=== PATIENT | male | born 1965 | race Caucasian/White ===

== ENCOUNTER 2020-07-09 11:47 | Outpatient (CLI) | payer MEDICARE, SELFPAY ==
--- NOTE | ~2020-07-09 | XR_ITS ---
XR hip RT min 2V 07/09/2020 12:16 Indication: Right hip pain Procedure: 2 views right hip Comparison: No prior studies for comparison. Findings: There is moderate osteoarthritis of the right hip. No fracture or traumatic malalignment. N o significant soft tissue abnormality. No radiopaque foreign bodies. Impression: 1: Moderate osteoarthritis of the right hip. Reviewed, dictated and finalized at location B. VISION ANNOUNCER Impression: 1: Moderate osteoarthritis of the right hip.
--- NOTE | ~2020-07-09 | XR_ITS ---
EXAMINATION: XR lumbar spine 2-3V DATE: 07/09/2020 12:15 INDICATION: Low back pain TECHNIQUE: Anteroposterior and lateral views of the lumbar spine, and cone-down lateral view of the l umbosacral junction were obtained. COMPARISON: None. FINDINGS: There is no fracture. There are 2 mm of anterolisthesis of L4 on L5. There is mild loss of intervertebral disc space height throughout the lumbar spine. The vertebral body heights are maintain ed. Mild to moderate facet osteoarthritis is present in the lower lumbar spine. Small degenerative os teophytes project from the anterior endplates of multiple vertebral bodies. The bowel gas pattern is normal. IMPRESSION: 1. Mild lumbar spondylosis without acute findings. Reviewed, dictated and finalized at location A. T PRODUCTION MANAGER
== END 2020-07-09 11:48 | disposition home or self-care (01) ==
PROVIDERS: PCP Family Medicine
DX: M16.11 Unilateral primary osteoarthritis, right hip (principal)
CPT/HCPCS: 72100; 73502

== ENCOUNTER 2020-11-26 14:02 | Outpatient (CLI) | payer MEDICARE, SELFPAY ==
--- NOTE | ~2020-11-26 | MR_ITS ---
EXAMINATION: MR lumbar spine wo [facility] EXAM DATE: 11/26/2020 15:30 INDICATION: Low back pain, symptoms 5 years. TECHNIQUE: Multi-sequential, multiplanar MR images of the lumbar spine were obtained without contrast . Sagittal T1, T2, T2 fat saturation images. Axial T2 weighted images. There is no prior study for comparison. FINDINGS: The vertebral bodies are aligned in the AP dimension. Vertebral body and disc heights are w ell-maintained. There are no suspicious marrow signal abnormalities. The conus medullaris terminates at the L1/2 level and has normal signal intensity and morphology. There are no suspicious marrow sig nal abnormalities. Paraspinal soft tissue is unremarkable. Level by level evaluation: T12-L1: Disc does not extend beyond the endplate margin. Facet arthropathy: Mild. Neural foraminal stenosis: No stenosis. Central canal stenosis: No stenosis. L1-L2: Disc does not extend beyond the endplate margin. Facet arthropathy: Mild. Neural foraminal stenosis: No stenosis. Central canal stenosis: No stenosis. L2-L3: Disc does not extend beyond the endplate margin. Facet arthropathy: Mild. Neural foraminal stenosis: No stenosis. Central canal stenosis: No stenosis. L3-L4: Disc does not extend beyond the endplate margin. Facet arthropathy: Mild to moderate. Neural foraminal stenosis: No stenosis. Central canal stenosis: No stenosis. L4-L5: There is a minimal diffuse disc bulge. Facet arthropathy: Moderate. Neural foraminal stenosis: Mild right. Central canal stenosis: Mild. L5-S1: There is a mild diffuse disc bulge. Facet arthropathy: Moderate right, mild left. Neural foraminal stenosis: Mild to moderate bilateral. Central canal stenosis: No stenosis. IMPRESSION: 1. Mild lumbar spondylosis. Reviewed, dictated and finalized at location A. IMPRESSION: 1. Mild lumbar spondylosis.
== END 2020-11-26 14:03 ==
LOC: MICIMG 14:02
PROVIDERS: Visit Provider Nurse Practitioner Family
DX: M47.896 Other spondylosis, lumbar region (principal)
CPT/HCPCS: 72148

== ENCOUNTER 2021-09-05 09:19 | Outpatient (CLI) | payer MEDICARE, SELFPAY ==
--- NOTE | ~2021-09-05 | CT_ITS ---
EXAMINATION: CT abdomen wo con DATE: 09/05/2021 09:33 INDICATION: Nontraumatic diastases of the rectus abdominis muscle TECHNIQUE: Computed tomography (CT) of the abdomen was performed without intravenous contrast. Automa soy exposure control and iterative reconstruction technique were employed. The dose-length product wa s 701.78 mGy-cm. COMPARISON: None FINDINGS: Lung bases are clear. Heart size is normal. No pericardial or pleural effusion. Liver, gallbladder, s pleen, pancreas, bilateral adrenal glands and kidneys are normal. Visualized portions of the bowels a re normal with no wall thickening or obstruction. Mild diastases of the rectus abdominis muscle with maximal separation of the medial margins of the rectus abdominis muscles measuring 3 cm . Tiny fat-co ntaining umbilical hernia. There is a separate slightly larger fat-containing paraumbilical hernia al wilbert its cephalad margin which measures 2.4 x 1.8 x 1.7 cm with 5 mm diameter orifice. No pathological ly enlarged abdominal lymphadenopathy. Mild thoracolumbar dextrocurvature with mild lumbar and lower thoracic spondylosis. IMPRESSION: 1. Mild rectus diastases with tiny fat-containing umbilical hernia and small fat-containing paraumbil ical hernia. Reviewed, dictated and finalized at location B. IMPRESSION: 1. Mild rectus diastases with tiny fat-containing umbilical hernia and small fa t-containing paraumbilical hernia.
== END 2021-09-05 09:20 ==
LOC: MICIMG 09:19
PROVIDERS: PCP Family Medicine; Visit Provider Surgery
DX: M62.08 Separation of muscle (nontraumatic), other site (principal); K42.9 Umbilical hernia without obstruction or gangrene; M47.815 Spondylosis without myelopathy or radiculopathy, thoracolumbar region
CPT/HCPCS: 74150

== ENCOUNTER 2022-01-20 11:40 | Outpatient (CLI) | payer MEDICARE, SELFPAY ==
--- NOTE | ~2022-01-20 | XR_ITS ---
6 EXAMINATION: XR chest 2V Exam Date/Time: 01/20/2022 11:45 CDT HISTORY: R06.2 - Wheezing Comparison: 08/06/2012. RESULT: Lines, tubes, and devices: None. Lungs and pleura: Slightly low volumes with crowding, particularly in the lateral view. Cardiomediastinal silhouette: Stable. Other: No acute osseous or upper abdominal finding. IMPRESSION: No acute cardiopulmonary process. Reviewed, dictated and finalized at location K.
--- NOTE | ~2022-01-20 | XR_ITS ---
EXAMINATION: XR hand RT 2V, XR wrist RT 2V DATE: 01/20/2022 12:03 INDICATION: Right hand and wrist pain. TECHNIQUE: 1. Posteroanterior and lateral views of the right wrist were obtained. 2. Dorsal palmar and lateral views of the right hand were obtained. COMPARISON: None. FINDINGS: Alignment of the right hand and wrist is normal. No fracture identified. Polyarticular osteoarthriti s, moderate severity at the distal interphalangeal joints and mild at the distal radioulnar, wrist, t riscaphe, first carpometacarpal and remaining metacarpophalangeal and interphalangeal joints. No eros ions to suggest inflammatory arthritis. Soft tissues are unremarkable. IMPRESSION: 1. Mild to moderate polyarticular osteoarthritis at the right hand and wrist, greatest at the distal interphalangeal joints. Reviewed, dictated and finalized at location A. IMPRESSION: 1. Mild to moderate polyarticular osteoarthritis at the right hand and wrist, g reatest at the distal interphalangeal joints.
== END 2022-01-20 11:41 ==
LOC: MICIMG 11:43
PROVIDERS: PCP Family Medicine; Visit Provider Physician Assistant Medical
DX: M79.641 Pain in right hand (principal); M25.531 Pain in right wrist; R06.2 Wheezing; M19.041 Primary osteoarthritis, right hand
CPT/HCPCS: 71046; 73100; 73120

== ENCOUNTER 2022-02-04 08:56 | Outpatient (CLI) | payer MEDICARE, SELFPAY ==
[2022-02-04 09:39] LABS: Potassium 3.4 mmol/L (3.4-5.0); Sodium 137 mmol/L (137-145)
[2022-02-04 09:40] LABS: Anion Gap 9 mmol/L (8-16); Blood Urea Nitrogen 15 mg/dL (7-17); Calcium 8.9 mg/dL (8.4-10.2); Carbon Dioxide 27 mmol/L (22-30); Chloride 101 mmol/L (98-107); Estimated Glomerular Filt Rate 52; Glucose 85 mg/dL (65-110)
== END 2022-02-04 08:57 | disposition home or self-care (01) ==
PROVIDERS: Anesthesiology; PCP Family Medicine; Visit Provider Surgery
DX: Z01.812 Encounter for preprocedural laboratory examination (principal); T50.2X5A Adverse effect of carbonic-anhydrase inhibitors, benzothiadiazides and other diuretics, initial encounter; K46.9 Unspecified abdominal hernia without obstruction or gangrene
CPT/HCPCS: 36415; 80048; 86850; 86900; 86901

== ENCOUNTER 2022-02-05 00:53 | Day surgery (SDC) | payer MEDICARE, SELFPAY ==
[2022-02-03 10:08] VITALS: BMI 35.5
--- NOTE | 2022-02-03 10:29 | SUR.PREOP ---
Report to the Outpatient Waiting Room, entrance under the green pavilion located off [facility], at time 1000 on date 02/05/22. OR Time: 1200. - You and your visitor will be asked to self-screen and do not enter if you have any COVID symptoms. - Only one visitor and NO children visitors are allowed at this time. - The patient visitor is requested to leave or wait in car when not with patient due to restrictions. - A mask is required within the hospital. Patients may have clear liquids (water, carbonated beverages, clear teas, apple juice) until 3 hours prior to surgery with a maximum of 20 ounces. - No food from midnight until time of surgery - Infants may have breast milk until 4 hours before surgery, formula 6 hours prior to surgery. - Children will be allowed to drink immediately following surgery. If applicable, please bring a bottle or sippy cup to assist with drinking. Juice, water, soda, and popsicles are readily available. For infants on formula, please bring formula the day of surgery. Pacifiers are allowed. Take the following medications with a SIP of water the morning of surgery: __ESCITALOPRAM, LEVOTHYROXINE Medications to discontinue per physician _HOLD ALL OTHER MORNING MEDICATIONS ON THE DAY OF SURGERY Date to take last dose Please no make-up, nail kuwaiti, hairspray, perfume, deodorant, or body powder the day of surgery. No jewelry (including any body piercings) or valuables the day of surgery, leave them at home. Please take a shower or bath the night before, or the morning of, surgery with an antibacterial soap. Wear comfortable, loose fitting clothing. Children are encouraged to wear pajamas. USE HIBICLENS THE MORNING OF SURGERY. USE DIRECTED - Jewelry must be removed prior to entering the operating room. Rings and piercings that are not removed may be cut off. - The hospital will not accept responsibility for valuables. - Please leave all valuables, including medications, at home the day of surgery. If you are going home after surgery, a licensed food service driver must drive you home. - NO public transportation without another adult. - We recommend that an adult stay with you for 24 hours following discharge. - We also recommend that you do not drive, make important decision, drink alcoholic beverages, or take any drugs that were not prescribed by your health care provider for at least 24 hours after your discharge time. For Pediatric surgeries, we recommend two adults accompany the child home (only one inside the building at this time). Follow any additional instructions given to you from your surgeon. If you or anyone in your household have experienced Covid symptoms in the past week, please notify your surgeon or the nurse liaison at the phone number below for possible testing. Telephone instructions given to PATIENT and asked if any additional questions and then verbalized understanding. Patient advised to call surgeon office or pre surgery nurse liaison [phone] if any additional questions.
[2022-02-05] VITALS (13 sets, daily range): BP systolic 110–138; BP diastolic 70–83; PULSE 68–98; RESP 14–22; TEMP 36.5–36.9; O2SAT 88–100
--- NOTE | 2022-02-05 06:46 | WPDANESEPPF ---
Anes - Initial Pre Proc Eval Procedure: Operation Date: 02/05/22 07:30 Proposed Procedures p Robotic Assisted Ventral Hernia Repair with Mesh - Inez Silva MD Date/Time: 02/05/22 06:46 Surgeon: Inez Silva MD Pre Op Diagnosis: ventral hernia Patient Data Age: 56 Gender: F Height: 1.68 m Weight: 99.79 kg Allergies Allergy/AdvReac Type Severity Reaction Status Date / Time erythromycin base Allergy Unknown Unknown Verified 01/21/22 08:58 iodine Allergy Other Verified 02/03/22 10:07 levofloxacin [From Levaquin] AdvReac Mild Nausea Verified 01/21/22 08:58 Home Medications Medication Instructions Recorded Confirmed Type Lactobacillus combo no.23 14 1 cell PO DAILY 11/04/20 02/03/22 History billion cell capsule (David Probiotic) fluticasone propionate 50 1 spray intranasal DAILY 11/04/20 02/03/22 History mcg/actuation nasal spray,suspension (Flonase Allergy Relief) celecoxib 200 mg capsule 200 mg PO BID #180 caps 06/22/21 02/03/22 Rx escitalopram oxalate 10 mg tablet 10 mg PO DAILY #90 tabs 06/22/21 02/03/22 Rx indapamide 2.5 mg tablet 2.5 mg PO DAILY #90 tabs 06/22/21 02/03/22 Rx syringe with needle 3 mL 21 gauge #100 ea 06/22/21 02/03/22 Rx x 1 1/2 (BD Luer-Cathleen Syringe) testosterone cypionate 200 mg/mL 200 mg IM .every 2 weeks #10 mL 06/22/21 02/03/22 Rx intramuscular oil (Depo-Testosterone) valacyclovir 500 mg tablet 500 mg PO DAILY #90 tabs 06/22/21 02/03/22 Rx cetirizine 10 mg capsule (Zyrtec) 10 mg PO DAILY PRN Allergy Symptoms 08/20/21 02/03/22 History levothyroxine 125 mcg tablet 125 mcg PO DAILY 02/03/22 02/03/22 History Patient hx anesthesia problems: post op nausea/vomiting Family hx anesthesia problems: none Results Review: All pre-operative results and documents have been reviewed as part of the pre-operative evaluation. 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 Hypothyroidism Lumbar back pain with radiculopathy affecting lower extremity Lumbar pain Ongoing treatment with hormonal therapy Right hip pain Skin lesion of right arm Trochanteric bursitis, right hip Ventral hernia Vision changes Wears glasses Surgical History Surgical History Deficient knowledge of hysterectomy hx of hysterectomy 2011 History of bilateral breast reduction surgery 2003 History of cataract surgery 2000 History of thyroid surgery (HALF) 1996 History of tonsillectomy 1980 S/P ACL reconstruction 2012 Family History Family History Father Hypertension Family history of exposure to Agent [place] Grandparent Hypertension Mother Emphysema lung Depression Sibling No problems noted. Other Arthritis Breast cancer Cancer Family history of lung cancer Heart disease Kidney disorder Lung cancer Lung disease Retinitis pigmentosa Skin cancer Social History Social History Smoking packs per day: 5 Smoking cigarettes per day: 100.0 Years smoked: 30 Smoking pack-years: 150.00 Smoking status: Former smoker Tobacco type: cigarettes and e-cigarettes/vaping Second hand tobacco smoke exposure: Yes Additional smoking assessment comments: QUIT 5 YRS AGO Alcohol intake: current Drinks per week: 3 Substance use: never Substance use type: does not use Living arrangements: with family Additional occupation/education comments: [employer] Gender identity (if verbalized by the patient): Transgender Male Sexual Orientation (if Verbalized by the Patient): Straight or Heterosexual Anes - Eval Final PreProcedure Day of Procedure 02/05
[2022-02-05] MEDS: ACETAMINOPHEN 500 MG TABLET 1000 MG PO (06:56)
[2022-02-05] MEDS: KETOROLAC 15 MG/ML VIAL (*BKC) IV PUSH (07:08)
--- NOTE | 2022-02-05 07:17 | WPDHPUPDATE1 ---
History and Physical Update Update Date/Time: 02/05/22 07:17 History and Physical has been reviewed, including an updated exam of the patient. There are NO changes in the patient's condition. Risks, benefits, and alternatives have been discussed and questions answered. Patient agrees to proceed with procedure.
[2022-02-05] MEDS: SCOPOLAMINE 1.5 MG PATCH TRANSDERM (07:18)
[2022-02-05] MEDS: LACTATED RINGERS 1,000 ML 30 ML IV CONT ×2 (07:18→09:12)
[2022-02-05] MEDS: ceFAZolin 2 GM/D5W 50 ML 2 GM/50 ML BAG IVPB (07:28)
[2022-02-05] MEDS: BUPIVACAINE/EPINEPHRINE 0.25% 50 ML VIAL 30 ML INFILTRATE (08:15)
--- NOTE | 2022-02-05 09:04 | W.PM.PROC2 ---
Procedure Note - Detailed Date of Procedure 02/05/22 Pre-op Diagnosis ventral hernia, umbilical hernia Post-op Diagnosis Same Procedure Performed robotic assisted incarcerated supraumbilical ventral hernia and umbilical hernia with mesh Surgeon Inez Silva MD Anesthesia General Indications 56 y/o M c incarcerated supraumbilical ventral hernia and umbilical hernia Findings moderate sized incarcerated supraumbilical hernia, small umbilical hernia Description of Procedure The patient was taken the operating room placed in the supine position. After adequate induction of general anesthesia, the patient was prepped and draped in normal sterile fashion. A time-out was then done to verify the patient's identity as well as the procedure being performed. I began by making a 5 mm incision in the left upper quadrant. Through this, a Veress needle was placed into the peritoneal cavity and CO2 gas was insufflated. After adequate pneumoperitoneum was achieved, a 5 mm trocar was placed through this incision. I then placed the laparoscope through this trocar site and under direct visualization I placed a 8 mm port in the left mid abdomen as well as an additional 8 mm port in the left lower abdomen. I then moved the camera to the lower port and replaced the 5 mm port with a 12 mm airport. The robot was then docked to the 3 port sites. I then went to the robotic console. I began by identifying the hernias. A moderate-sized incarcerated hernia was noted in the supraumbilical region. Using graspers, I was able to reduce this hernia. The hernia was noted to contain a large amount of preperitoneal fat and omentum. Once reduced, I also reduced and dissected out the hernia sac. A smaller umbilical hernia was also noted. The contents were again reduced and I again also dissected out the hernia sac. I then closed the approximately 4 cm combined defects with 0 strata fix suture. I then placed a 15 x 10 cm Ventralight mesh into the abdominal cavity. The Vicryl stitch was placed in the middle of the mesh and brought up centering the mesh over the defect. Once this was done, I used 2 0 V lock suture x 2 to circumferentially suture the mesh to the abdominal. Once the mesh was completely sutured in, I was happy with our tension-free repair. The mesh was noted to have good overlap of the defect. I then removed the centering device. All sutures were removed. At this point, the robot was undocked and all ports were removed. I then closed the 12 mm port site with an 0 Vicryl [id number] suture at the fascial level. All port sites were then closed with 4 O Monocryl subcuticular suture. The patient tolerated the procedure well, was extubated in the operating room postoperative, and transferred to the recovery room in stable condition. Implants 15x10 cm Ventralight mesh Estimated Blood Loss 10 Drains No Packing No Pathology None sent Complications No immediate complications Condition Stable Disposition PACU [facility] Billing Surgery - Charge Forward: Surgery Billing
[2022-02-05] MEDS: fentaNYL CITRATE INJ (*CRX) 100 MCG/2 ML VIAL 25 MCG IV PUSH ×6 (09:37→11:51)
[2022-02-05] MEDS: oxyCODONE HCL (*CRX) 5 MG TAB IR PO (10:54)
== END 2022-02-05 13:10 | disposition home or self-care (01) ==
PROVIDERS: PCP Family Medicine; Visit Provider Surgery
PROC: (CPT 49653; principal; 2022-02-05 07:30)
DX: K43.6 Other and unspecified ventral hernia with obstruction, without gangrene (principal); K42.0 Umbilical hernia with obstruction, without gangrene; E89.0 Postprocedural hypothyroidism; Z79.890 Hormone replacement therapy; Z87.891 Personal history of nicotine dependence; E66.9 Obesity, unspecified; Z68.35 Body mass index [BMI] 35.0-35.9, adult
CPT/HCPCS: 49653; S2900; 36415; 80048; 86850; 86900; 86901; A9270; C1781; J0690; J1100; J1170; J1885; J2250; J2405; J2704; J2710; J3010; J7030; J7120

== ENCOUNTER 2023-02-04 13:26 | Outpatient (CLI) | payer MEDICARE, SELFPAY ==
--- NOTE | ~2023-02-04 | XR_ITS ---
EXAMINATION: XR shoulder RT min 2V DATE: 02/04/2023 14:58 INDICATION: Right shoulder pain. TECHNIQUE: 4 views of right shoulder were obtained. COMPARISON: None. FINDINGS: Bone alignment is normal. No fracture. There is mild osteoarthritis of glenohumeral joint a nd acromioclavicular joint. IMPRESSION: 1. Mild polyarticular osteoarthritis. Reviewed, dictated and finalized at location E.
== END 2023-02-04 13:27 ==
PROVIDERS: PCP Family Medicine; Visit Provider Nurse Practitioner Family
DX: M19.011 Primary osteoarthritis, right shoulder (principal)
CPT/HCPCS: 73030

== ENCOUNTER 2023-04-06 12:31 | Outpatient (CLI) | payer MEDICARE, SELFPAY ==
--- NOTE | ~2023-04-06 | MR_ITS ---
MRI of the brain Clinical History: Resting tremor Technique: Axial and sagittal T1-weighted images were acquired. These were followed by axial T2-weigh soy, diffusion weighted, gradient, and FLAIR images. Findings: There is no acute infarct, internal hemorrhage, or mass lesion. There are minimal chronic w luis matter changes in the periventricular white matter. Ventricles and subarachnoid spaces are unremarkable. Orbits are unremarkable. Paranasal sinuses and m astoid air cells are clear. Major intracranial flow voids are intact. Suggestion of empty sella syndrome. Sagittal midline structures are otherwise intact. IMPRESSION: No intracranial hemorrhage, mass lesion, or acute infarct. Minimal chronic microvascular ischemic changes. Suggestion of empty sella syndrome. Reviewed, dictated and finalized at location M. [place] CLIENT MANAGER
== END 2023-04-06 12:32 ==
PROVIDERS: PCP Family Medicine; Visit Provider Student in an Organized Health Care Education/Training Program
DX: I67.82 Cerebral ischemia (principal); G25.2 Other specified forms of tremor
CPT/HCPCS: 70551

== ENCOUNTER 2023-05-03 12:39 | Outpatient (CLI) | payer MEDICARE, SELFPAY ==
--- NOTE | ~2023-05-03 | MR_ITS ---
EXAMINATION: MR shoulder RT wo con DATE: 05/03/2023 13:30 INDICATION: Right shoulder pain TECHNIQUE: Magnetic resonance imaging (MRI) of the right shoulder was performed without intravenous c ontrast. Sequences included axial PD-weighted FS FSE, coronal oblique PD-weighted FS FSE, coronal obl ique T2-weighted FS FSE, sagittal PD-weighted FS FSE, and sagittal T1-weighted SE. COMPARISON: None. FINDINGS: Coracoacromial arch: The acromion undersurface is minimally curved in morphology (type I-II). The coracoacromial ligament is normal. Mild acromioclavicular osteoarthritis. Rotator cuff: Mild supraspinatus and infraspinatus tendinopathy. There is an intra-articular tear extending for melissa roximately 2 cm AP along the superior facet and anterior most portion of the middle facet insertion o f the supraspinatus and conjoined portion of the supraspinatus and infraspinatus tendons. The tear in volves up to one third of the tendon thickness. There is up to 1 cm maximal medial retraction of the torn central portion of the supraspinatus tendon. The subscapularis and teres minor tendons are juan ramon l. Normal rotator cuff muscle bulk and signal. Biceps tendon, glenoid labrum and glenohumeral cartilage: Long head of the biceps tendon is normal. Glenoid labrum is normal. Glenohumeral cartilage is normal. Fluid: There is a small amount of fluid in the long head biceps tendon sheath which is disproportionate to t he physiologic amount of fluid in the glenohumeral joint space consistent with mild bicipital tenosyn ovitis. No loose osteochondral bodies. Small amount of fluid in the subacromial/subdeltoid bursa cons istent with mild bursitis. Bones: Normal marrow signal with no edema, fracture or abnormal marrow replacing process. IMPRESSION: 1. Mild supraspinatus and infraspinatus tendinopathy with mild intrasubstance tear extending 2 cm AP along the footplate of the supraspinatus and conjoined supraspinatus and infraspinatus tendons. 2. Mild bicipital tenosynovitis and mild subacromial/subdeltoid bursitis. Reviewed, dictated and finalized at location A. CULTURAL PURCHASING AGENT IMPRESSION: 1. Mild supraspinatus and infraspinatus tendinopathy with mild intrasubstance t ear extending 2 cm AP along the footplate of the supraspinatus and conjoined bliss praspinatus and infraspinatus tendons. 2. Mild bicipital tenosynovitis and mild subacromial/subdeltoid bursitis.
== END 2023-05-03 12:40 ==
PROVIDERS: PCP Family Medicine; Visit Provider Orthopaedic Surgery
DX: M75.21 Bicipital tendinitis, right shoulder (principal); M75.101 Unspecified rotator cuff tear or rupture of right shoulder, not specified as traumatic
CPT/HCPCS: 73221

== ENCOUNTER 2023-08-23 00:31 | Day surgery (SDC) | payer MEDICARE, SELFPAY ==
[2023-08-16 14:47] VITALS: BMI 35.6
--- NOTE | 2023-08-16 14:54 | PC.NURSE ---
Report to the Outpatient Waiting Room, entrance under the green pavilion located off [facility], at time _1000_ on date _08-23-23_. Planned Procedure Time: _1200_. Time changes happen often and if your time is changed the preop area will call you the afternoon before. - You and your visitor will be asked to self-screen and do not enter if you have any COVID symptoms. - A mask is optional within the hospital at this time. Patients may have clear liquids (water, carbonated beverages, clear teas, apple juice) until 3 hours prior to surgery with a maximum of 20 ounces. - No food from midnight until time of surgery Take the following medications with a SIP of water the morning of surgery: __Levothyroxine, Escitalopram and Flonase DO NOT STOP ANY OF YOUR OTHER PRESCRIPTION MEDICATIONS PRIOR TO SURGERY ?EXCEPT THE FOLLOWING Medications to discontinue per physician ____None Date to take last dose Please no make-up, nail telugu, hairspray, perfume, deodorant, or body powder the day of surgery. No jewelry (including any body piercings) or valuables the day of surgery, leave them at home. Please take a shower or bath the night before, or the morning of, surgery with an antibacterial soap. Wear comfortable, loose fitting clothing. - Jewelry must be removed prior to entering the operating room. Rings and piercings that are not removed may be cut off. - The hospital will not accept responsibility for valuables. - Please leave all valuables, including medications, at home the day of surgery. If you are going home after surgery, a licensed sheet pile driver operator must drive you home. - NO public transportation without another adult if you receive anesthesia. - We recommend that an adult stay with you for 24 hours following discharge. - We also recommend that you do not drive, make important decision, drink alcoholic beverages, or take any drugs that were not prescribed by your health care provider for at least 24 hours after your discharge time. Follow any additional instructions given to you from your surgeon. If you or anyone in your household have experienced Covid symptoms in the past week, please notify your surgeon or the nurse liaison at the phone number below for possible testing. Telephone instructions given to _Mateoandrew__and asked if any additional questions and then verbalized understanding. Patient advised to call surgeon office or pre surgery nurse liaison [phone] if any additional questions.
[2023-08-23] VITALS (20 sets, daily range): BP systolic 98–151; BP diastolic 58–92; PULSE 77–109; RESP 14–24; TEMP 36.3–36.9; O2SAT 86–100
--- NOTE | ~2023-08-23 | XR_ITS ---
XR chest 1V portable 08/24/2023 09:38 Indication: Dyspnea. Increasing oxygen requirement. Procedure: AP portable chest Comparison: Comparison to multiple prior studies sequentially, with oldest reviewed study dated 01/2013. Findings: Developing patchy bilateral airspace disease. Heart size normal. No pleural effusion or pne umothorax. No acute osseous abnormality. Impression: 1: Developing patchy bilateral airspace disease which may represent pneumonia or edema. Reviewed, dictated and finalized at location L. Impression: 1: Developing patchy bilateral airspace disease which may represent pneumonia o r edema.
[2023-08-23] MEDS: LACTATED RINGERS 1,000 ML 30 ML IV CONT ×2 (10:47→14:18)
[2023-08-23] MEDS: ACETAMINOPHEN 500 MG TABLET 1000 MG PO ×3 (10:50→23:46)
[2023-08-23] MEDS: MAG HYDROX/AL HYDROX/SIMETH 30 ML UDC PO (11:18)
[2023-08-23] MEDS: KETOROLAC 15 MG/ML VIAL (*BKC) IV PUSH (11:25)
--- NOTE | 2023-08-23 11:54 | WPDHPUPDATE1 ---
History and Physical Update Update Date/Time: 08/23/23 11:54 History and Physical has been reviewed, including an updated exam of the patient. There are NO changes in the patient's condition. Risks, benefits, and alternatives have been discussed and questions answered. Patient agrees to proceed with procedure.
--- NOTE | 2023-08-23 12:08 | WPDANESEPPF ---
Anes - Initial Pre Proc Eval Procedure: Operation Date: 08/23/23 12:00 Proposed Procedures p Right Arthroscopic Rotator Cuff Repair with Subacromial Decompression, Possible Biceps Tenodesis, Proceed as Indicated - Sav George MD Date/Time: 08/23/23 12:08 Surgeon: Sav George MD Pre Op Diagnosis: Right partial rotator cuff tear Patient Data Age: 58 Gender: M Height: 1.68 m Weight: 102.3 kg Last Vital Signs Temp 36.6 C 08/23/23 11:07 Pulse 85 08/23/23 11:07 Resp 16 08/23/23 11:07 BP 139/83 08/23/23 11:07 Pulse Ox 100 08/23/23 11:07 O2 Del Method Room Air 08/23/23 11:07 Allergies Allergy/AdvReac Type Severity Reaction Status Date / Time erythromycin base Allergy Unknown Gastrointestinal Verified 08/23/23 10:25 Upset iodine Allergy Other Verified 08/23/23 10:25 ropinirole AdvReac Intermediate Gastrointestinal Verified 08/23/23 10:25 Upset levofloxacin [From Levaquin] AdvReac Mild Nausea Verified 08/23/23 10:25 Home Medications Medication Instructions Recorded Confirmed Type Lactobacillus combo no.23 14 1 cell PO DAILY 11/04/20 08/23/23 History billion cell capsule (David Probiotic) fluticasone propionate 50 1 spray intranasal DAILY 11/04/20 08/23/23 History mcg/actuation nasal spray,suspension (Flonase Allergy Relief) cetirizine 10 mg capsule (Zyrtec) 10 mg PO DAILY PRN Allergy Symptoms 08/20/21 08/23/23 History escitalopram oxalate 10 mg tablet 10 mg PO DAILY #90 tabs 04/14/23 08/23/23 Rx indapamide 2.5 mg tablet 2.5 mg PO DAILY #90 tabs 04/14/23 08/23/23 Rx valacyclovir 500 mg tablet 500 mg PO DAILY #90 tabs 04/14/23 08/23/23 Rx levothyroxine 125 mcg tablet 125 mcg PO DAILY #90 tabs 06/27/23 08/23/23 Rx syringe with needle 3 mL 21 gauge #13 ea 06/27/23 08/16/23 Rx x 1 1/2 (BD Luer-Cathleen Syringe) testosterone cypionate 200 mg/mL 200 mg IM .every 2 weeks #10 mL 08/02/23 08/23/23 Rx intramuscular oil (Depo-Testosterone) Patient hx anesthesia problems: none Family hx anesthesia problems: none Results Review: All pre-operative results and documents have been reviewed as part of the pre-operative evaluation. [facility] Past Medical History Medical History Anxiety Arthritis Blindness BMI 34.0-34.9,adult BMI 35.0-35.9,adult BMI 36.0-36.9,adult Claustrophobia Folliculitis Hernia, umbilical Hormonal imbalance in transgender patient Hypothyroidism Lumbar back pain with radiculopathy affecting lower extremity Lumbar pain Ongoing treatment with hormonal therapy Right hip pain Skin lesion of right arm Supraumbilical hernia Trochanteric bursitis, right hip Ventral hernia Vision changes Wears glasses Surgical History Surgical History Deficient knowledge of hysterectomy hx of hysterectomy 2011 H/O umbilical hernia repair robotic assisted incarcerated supraumbilical ventral hernia & umbilical hernia with mesh 02/05/22 History of bilateral breast reduction surgery 2004 History of cataract surgery 2001 History of thyroid surgery (HALF) 1996 History of tonsillectomy 1980 S/P ACL reconstruction 2012 Family History Family History Father Hypertension Family history of exposure to Agent [place] Grandparent Hypertension Mother Emphysema lung Depression Sibling No problems noted. Other Arthritis Breast cancer Cancer Family history of lung cancer Heart disease Kidney disorder Lung cancer Lung disease Retinitis pigmentosa Skin cancer Social History Social History Smoking packs per day: 0.5 Smoking cigarettes per day: 10.0 Years smoked: 20 Smoking pack-years: 10.00 Smoking status: Former smoker Tobacco type: cigarettes and e-cigaret
[2023-08-23] MEDS: SCOPOLAMINE 1 MG PATCH 1 PATCH TRANSDERM (12:09)
[2023-08-23] MEDS: ceFAZolin 2 GM/D5W 50 ML 2 GM/50 ML BAG IVPB (12:51)
[2023-08-23] MEDS: EPINEPHrine HCL INJ 1 MG/ML AMPUL IRRIGATION (12:53)
[2023-08-23] MEDS: BUPIVACAINE/EPINEPHRINE 0.5% 30 ML VIAL INFILTRATE (12:58)
--- NOTE | 2023-08-23 14:33 | W.PM.PROC2 ---
Procedure Note - Detailed Date of Procedure 08/23/23 Pre-op Diagnosis Right partial rotator cuff tear Post-op Diagnosis Other (1. Partial rotator cuff tear 2. Subacromial impingement) Procedure Performed Right shoulder 1. Arthroscopic rotator cuff repair 2. Arthroscopic subacromial decompression Surgeon Sav George MD [employer] Shiloh Willson PA-C Anesthesia General and Regional ( interscalene block) Findings Findings consistent with the MRI: partial-thickness supraspinatus tear. 15% on the articular side and an intra-articular split noted on the MRI. The bursal side was in good shape with only minimal fraying. There was a prominence to the lateral greater tuberosity footprint area that was clearly impinging on the large subacromial spur. Acromioplasty was performed. The Regeneten graft was placed over the supraspinatus tendon. Interestingly, the biceps appeared healthy but was slightly tethered to the capsule, and was enveloped in the capsule on the anterior aspect. Description of Procedure Preoperative antibiotics were given. An interscalene block was administered in the preoperative area. The patient was bought brought to the operating room. A general anesthetic was administered. The patient was carefully positioned in the [beach chair] position. The head and neck were carefully positioned. The non operative extremity was also carefully positioned. The shoulder was prepped and draped in the usual sterile fashion. Examination was performed. Standard posterior and anterior arthroscopic portals were established. Inflow achieved with the arthroscopic pump using saline and epinephrine. The glenohumeral joint was carefully inspected. The glenohumeral articular cartilage was healthy. No tearing of the subscapularis or infraspinatus. Biceps anchor was firmly attached. Mild posterior labral fraying. Interestingly the biceps was confluent with the capsule. This did not have any appearance of prior injury or pathology. Attention was turned to the subacromial space. A complete bursectomy was performed. An acromioplasty was performed. The bursal bursal sided rotator cuff had minimal fraying at the area of impingement. The tendon itself was slightly soft at the area of intra substance tearing but was otherwise intact. The medium-size Regeneten graft was brought into the shoulder through a lateral portal. Care was taken to avoid the biceps tendon which was previously marked with a spinal needle. Six tendon anchors were applied and 2 bone anchors. The collagen implant was nicely approximated. The arthroscopic instruments were removed. The wounds were closed with 3-0 Monocryl subcuticular suture and steri strips. There were no complications. A sling was applied and the patient brought to the recovery room. Physician assistant auto center manager, Shiloh Willson PA-C, required for surgery; including patient positioning, draping, arthroscopic camera operation, maintaining position of the collagen graft, wound closure, and dressing and sling placement. Implants The Regeneten collagen tissue implant from [employer]. Medium-sized implant. Five KENROY soft tissue anchors. Two peek bone anchors. Estimated Blood Loss 10 Pathology None sent Complications No immediate complications Condition Stable Disposition PACU [facility] Billing Surgery - Charge Forward: Surgery Billing
--- NOTE | 2023-08-23 17:21 | SUR.PHASEII ---
Patient off of oxygen for 30 minutes. Patient oxygen saturation dropped to 87% twice in that timeframe and was able to recover to 90% or greater without needing placed back on oxygen. Patient ambulated in morrison of outpatient recovery. Oxygen saturation dropped to 81% upon return to patient's room. Patient was never able to recover to a saturation above 90% without supplemental oxygen. Shiloh LINARES notified of this. Plan to admit patient to med/surg for evaluation over night.
[2023-08-23] MEDS: SENNA/DOCUSATE SODIUM TABLET 2 TAB PO (18:25)
[2023-08-23] MEDS: SODIUM CHLORIDE 0.9% IV 1,000 ML 125 ML IV CONT (18:26)
--- NOTE | 2023-08-23 18:37 | PC.NURSE ---
This patient, Tanvir Walker, was received from Recovery Room 2 on 08/23/23 at 1838. Patient/family oriented to unit policies and routines. Questions about floor answered.
[2023-08-23] MEDS: FAMOTIDINE 20 MG TABLET PO (20:54)
--- NOTE | 2023-08-23 22:21 | WPDCN ---
Assessment and Plan Assessment and plan (1) Partial tear of right rotator cuff: Qualifiers: Rotator cuff tear trauma status: traumatic Encounter type: initial encounter Qualified Code(s): S46.011A - Strain of muscle(s) and tendon(s) of the rotator cuff of right shoulder, initial encounter Code(s): M75.111 - Incomplete rotator cuff tear or rupture of right shoulder, not specified as traumatic Status: Acute Assessment and Plan: Postoperative day 0 status post arthroscopic rotator cuff repair and subacromial decompression. Wound care, pain control, and DVT prophylaxis deferred to Dr. George. (2) Postoperative hypoxia: Code(s): R09.02 - Hypoxemia; Z98.890 - Other specified postprocedural states Status: Acute Assessment and Plan: Patient was hypoxic and PACU, likely due to pain medication and anesthesia. May very well have underlying sleep apnea and apnea link has been ordered. Wean oxygen as tolerated. (3) Suspected sleep apnea: Code(s): R29.818 - Other symptoms and signs involving the nervous system Status: Acute Assessment and Plan: Apnea link ordered. (4) Hypothyroidism: Qualifiers: Hypothyroidism type: acquired Qualified Code(s): E03.9 - Hypothyroidism, unspecified Code(s): E03.9 - Hypothyroidism, unspecified Status: Acute Assessment and Plan: Continue levothyroxine and check TSH. Plan Thank you for allowing us to participate in this patient's care. Please do not hesitate to contact us with any questions. HPI Data of Consult Date/Time: 08/23/23 20:30 Requesting Physician: Sav George MD Consult Narrative Reason for consult: Medical management. Narrative: This is a very pleasant 58-year-old transgender male with hypothyroidism, anxiety, seasonal allergies, and retinitis pigmentosa who presented today for elective right shoulder surgery to repair a partial rotator cuff tear with subacromial impingement whom the hospitalist service has been consulted for help managing his medical conditions. His surgery was performed under general anesthesia with regional block. No immediate complications were documented an estimated blood loss was approximately 10 mL. He was a bit hypoxic in the PACU and is currently on 2 L nasal cannula with an SpO2 in the upper 90s. Pain is well controlled in the right shoulder but is starting to ache as the block is likely wearing off. He has a history of postoperative nausea and vomiting but was pre treated for that and he is feeling good in that regard. He was able to eat dinner without issue. He denies paresthesias, skin color, and temperature changes distal to the surgical site. He also denies fever, chills, sweats, chest pain, pleuritic pain, shortness a breath, nausea, and vomiting. Review of Systems Review of Systems: Twelve systems were reviewed. No fever, chills, or sweats. No recent cold or flu symptoms. He has some concerns for sleep apnea; reports that he snores and he does endorse on occasion waking up gasping for air but that is rare. 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 No history of venous thromboembolism. He is on testosterone injections every 2 weeks. Except as documented, all other systems were reviewed and are negative. 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 Claustrophobia Hormonal imbalance in transgender patient Hypothyroidism Lumbar back pain with radiculopathy affecting lower extremity Ongoing treatment with hormonal therapy Retinitis pigmentosa Surgical History Surgical History (Updated 08/23/23 @ 22:32 by Ryann Izquierdo PA-C) History of bilateral breast reduction surgery (2003) History of cataract surgery (2000) History of hernia repair (01/2022) robotic assisted incarcerated supraumbilical ventra
--- NOTE | 2023-08-23 23:36 | PCRCNOTE ---
Apnea Link not perfromed. RN aware. Pt does not wear oxygen at home. Pt on a 2LNC. RN tried to wean pt to room air but pt spo2 dropped into the 80's. Pt ordered apnea link due to acute hypoxia post surgery most likely due to anesthesia. Apnea link will be performed when pt is back to his baseline; room air.
[2023-08-24 01:10] VITALS: BP 100/55; PULSE 106; RESP 22; TEMP 36.8; O2SAT 93
[2023-08-24] MEDS: ACETAMINOPHEN 500 MG TABLET 1000 MG PO ×2 (05:41→11:33)
[2023-08-24 05:55] VITALS: BP 107/51; PULSE 80; RESP 20; TEMP 36.2; O2SAT 94
[2023-08-24 07:19] LABS: Anion Gap 2 mmol/L (8-16); Blood Urea Nitrogen 14 mg/dL (9-20); Calcium 7.8 mg/dL (8.4-10.2); Carbon Dioxide 25 mmol/L (22-30); Chloride 108 mmol/L (98-107); Estimated CRCL calculation 89 ml/min; Estimated Glomerular Filt Rate > 60; Glucose 100 mg/dL (65-110); Magnesium 2.1 mg/dL (1.6-2.3); Potassium 3.9 mmol/L (3.4-5.0); Sodium 135 mmol/L (137-145)
--- NOTE | 2023-08-24 07:31 | PM.IMPN ---
Progress Note: A&P Assessment and Plan (1) Partial tear of right rotator cuff: Qualifiers: Rotator cuff tear trauma status: traumatic Encounter type: initial encounter Qualified Code(s): S46.011A - Strain of muscle(s) and tendon(s) of the rotator cuff of right shoulder, initial encounter Code(s): M75.111 - Incomplete rotator cuff tear or rupture of right shoulder, not specified as traumatic Status: Acute Assessment and Plan: Postoperative day 0 status post arthroscopic rotator cuff repair and subacromial decompression. Wound care, pain control, and DVT prophylaxis deferred to Dr. George. (2) Postoperative hypoxia: Code(s): R09.02 - Hypoxemia; Z98.890 - Other specified postprocedural states Status: Acute Assessment and Plan: Patient was hypoxic and PACU, likely due to pain medication and anesthesia. May very well have underlying sleep apnea and apnea link has been ordered. Wean oxygen as tolerated. 08/24/23: Apnea link was not completed because he is not at his baseline respiratory status Chest XR ordered for this morning CBC ordered (3) Suspected sleep apnea: Code(s): R29.818 - Other symptoms and signs involving the nervous system Status: Acute Assessment and Plan: Apnea link ordered. (4) Hypothyroidism: Qualifiers: Hypothyroidism type: acquired Qualified Code(s): E03.9 - Hypothyroidism, unspecified Code(s): E03.9 - Hypothyroidism, unspecified Status: Acute Assessment and Plan: Continue levothyroxine and check TSH. Plan Thank you for allowing us to participate in this patient's care. Please do not hesitate to contact us with any questions. Subjective Date/time seen: 08/24/23 07:31 Interval history: This is a very pleasant 58-year-old transgender male with hypothyroidism, anxiety, seasonal allergies, and retinitis pigmentosa who presented today for elective right shoulder surgery to repair a partial rotator cuff tear with subacromial impingement whom the hospitalist service has been consulted for help managing his medical conditions. His surgery was performed under general anesthesia with regional block. No immediate complications were documented an estimated blood loss was approximately 10 mL. He was a bit hypoxic in the PACU and is currently on 2 L nasal cannula with an SpO2 in the upper 90s. Pain is well controlled in the right shoulder but is starting to ache as the block is likely wearing off. He has a history of postoperative nausea and vomiting but was pre treated for that and he is feeling good in that regard. He was able to eat dinner without issue. He denies paresthesias, skin color, and temperature changes distal to the surgical site. He also denies fever, chills, sweats, chest pain, pleuritic pain, shortness a breath, nausea, and vomiting. Review of Systems Review of Systems: All systems reviewed & are unremarkable except as noted in HPI and below Exam Narrative: General: well appearing, well developed, well nourished, appears stated age. HEENT: normocephalic, atraumatic. Mucous membranes moist. EOMI, PERRLA, bilateral sclera anicteric, no conjunctival injection. Neck supple without JVD, lymphadenopathy, or bruit. Respiratory: clear to ascultation bilaterally. No rales/rhonic/wheezes. Cardiovascular: Regular rate and rhythm, normal S1-S2 upon ascultation. No murmurs, rubs, or clicks. PMI is nondisplaced, capillary re-fill less than 3 second. Abdomen: Soft, flat, no pulsatile masses, non-distended and non-tender. No rebound, no guarding. No CVA tenderness, no hepatosplenomegaly. Bowel sounds present to all four quadrants. No high pitch or tinkling sounds, resonant to percussion. Extremities: No cyanosis, clubbing, or edema present. Pulses are palpable 2/2. Active ROM to all four extremities. Neuro: Alert and orientated x 4. PERRLA. Cranial nerves 2-12 intact without focal deficit.
[2023-08-24 07:41] VITALS: BP 102/52; PULSE 81; RESP 20; TEMP 36.7; O2SAT 98
[2023-08-24 07:50] VITALS: BP 102/52; PULSE 66; RESP 19; TEMP 36.6; O2SAT 94
[2023-08-24 08:26] LABS: Thyroid Stimulating Hormone Reflex 0.823 uIU/mL (0.465-4.68)
[2023-08-24 08:43] LABS: Hematocrit 45.9 % (42.0-52.0); Hemoglobin 14.8 g/dL (14.0-18.0); Mean Corpuscular HGB Conc 32.2 g/dl (32-36); Mean Corpuscular Hemoglobin 29.6 pg (26-34); Mean Corpuscular Volume 91.8 fl (80-100); Mean Platelet Volume 10.2 fl (7.4-10.4); Platelet Count Result 298 k/mm3 (150-375); Red Cell Distribution Width 14.1 % (11.5-14.5); White Blood Count 15.6 K/mm3 (4.5-10.0)
[2023-08-24] MEDS: polyethylene glycoL 3350 17 GM POWD.PACK PO (08:56)
[2023-08-24] MEDS: SENNA/DOCUSATE SODIUM TABLET 2 TAB PO (08:56)
[2023-08-24] MEDS: FAMOTIDINE 20 MG TABLET PO (08:57)
[2023-08-24] MEDS: ASPIRIN 81 MG ENTERIC TABLET PO (08:57)
--- NOTE | 2023-08-24 10:12 | PM.PNORT ---
Subjective Subjective Date/Time Seen: 08/24/23 10:12 Objective Data Vital Signs Vital Signs: Vital Signs - 24 hr 08/23/23 11:07 08/23/23 14:18 08/23/23 14:35 Temperature 97.9 F 97.4 F L Pulse Rate 85 94 93 Respiratory Rate 16 14 14 Blood Pressure 139/83 151/82 H 148/92 H Pulse Oximetry 100 100 92 Oxygen Delivery Room Air Simple Face Mask Simple Face Mask Oxygen Flow Rate 8 10 08/23/23 14:50 08/23/23 15:05 08/23/23 15:20 Temperature Pulse Rate 95 89 81 Respiratory Rate 22 H 20 16 Blood Pressure 140/80 133/84 117/73 Pulse Oximetry 96 93 92 Oxygen Delivery Simple Face Mask Nasal Cannula Nasal Cannula Oxygen Flow Rate 6 2 2 08/23/23 15:35 08/23/23 15:44 08/23/23 15:50 Temperature Pulse Rate 87 81 Respiratory Rate 24 H 16 Blood Pressure 98/69 L 121/63 Pulse Oximetry 91 91 92 Oxygen Delivery Nasal Cannula Nasal Cannula Nasal Cannula Oxygen Flow Rate 2 2 2 08/23/23 16:00 08/23/23 16:05 08/23/23 16:35 Temperature Pulse Rate 86 83 77 Respiratory Rate 15 20 20 Blood Pressure 111/65 105/67 106/58 L Pulse Oximetry 91 94 95 Oxygen Delivery Nasal Cannula Nasal Cannula Nasal Cannula Oxygen Flow Rate 2 2 1 08/23/23 16:36 08/23/23 17:05 08/23/23 17:35 Temperature Pulse Rate 90 86 Respiratory Rate 16 20 Blood Pressure 113/67 110/63 Pulse Oximetry 90 95 Oxygen Delivery Room Air Room Air Nasal Cannula Oxygen Flow Rate 2 08/23/23 17:55 08/23/23 18:11 08/23/23 18:41 Temperature 98.1 F 98.3 F Pulse Rate 86 91 99 Respiratory Rate 20 16 17 Blood Pressure 105/62 104/61 117/65 Pulse Oximetry 97 94 100 Oxygen Delivery Nasal Cannula Oxygen Flow Rate 2 08/23/23 20:50 08/23/23 20:51 08/23/23 20:45 Temperature 98.5 F Pulse Rate 109 H Respiratory Rate 20 Blood Pressure 115/73 Pulse Oximetry 86 L 96 96 Oxygen Delivery Room Air Nasal Cannula Oxygen Flow Rate 2 08/24/23 01:10 08/24/23 05:55 08/24/23 07:41 Temperature 98.3 F 97.2 F L 98.1 F Pulse Rate 106 H 80 81 Respiratory Rate 22 H 20 20 Blood Pressure 100/55 L 107/51 L 102/52 L Pulse Oximetry 93 94 98 Oxygen Delivery Oxygen Flow Rate 08/24/23 09:08 08/24/23 07:50 Temperature 97.8 F Pulse Rate 66 Respiratory Rate 19 Blood Pressure 102/52 L Pulse Oximetry 94 Oxygen Delivery Nasal Cannula Oxygen Flow Rate 2 Intake/Output Intake/Output: Intake & Output 08/21/23 08/22/23 08/23/23 08/24/23 23:59 23:59 23:59 23:59 Intake Total 850 450 Balance 850 450 Meds/Results Medications: Active Medications Generic Name Dose Route Start Last Admin Trade Name Freq PRN Reason Stop Dose Admin Acetaminophen 1,000 mg 08/23/23 18:00 08/24/23 05:41 Acetaminophen 500 Mg Tablet PO 1,000 mg Q6H LM Administration Aspirin 81 mg 08/24/23 09:00 08/24/23 08:57 Aspirin 81 Mg Enteric Tablet PO 81 mg BID LM Administration Cyclobenzaprine HCl 10 mg 08/23/23 17:56 Cyclobenzaprine Hcl 10 Mg Tablet PO Q8H PRN Spasms Diphenhydramine HCl 25 mg 08/23/23 17:56 Diphenhydramine Hcl Inj 50 Mg/Ml Vial IV PUSH Q6H PRN Itching Famotidine 20 mg 08/23/23 21:00 08/24/23 08:57 Famotidine 20 Mg Tablet PO 20 mg Q12HR LM Administration Naloxone HCl 0.1 mg 08/23/23 17:56 Naloxone Hcl 0.4 Mg/Ml Vial IV PUSH Q2M PRN Opiate Reversal Ondansetron HCl 4 mg 08/23/23 17:56 Ondansetron Inj 4 Mg/2 Ml Vial IV PUSH Q4H PRN Nausea And Vomiting Oxycodone HCl 5 mg 08/23/23 17:56 Oxycodone Hcl (*Crx) 5 Mg Tab Ir PO Q4H PRN Pain Rated 4-6 Oxycodone HCl 10 mg 08/23/23 17:56 Oxycodone Hcl (*Crx) 5 Mg Tab Ir PO Q4H PRN Pain Rated 7-10 Polyethylene Glycol 17 gm 08/24/23 09:00 08/24/23 08:56 Polyethylene Glycol 3350 17 Gm Powd.Pack PO 17 gm QAM LM Administration Senna/Docusate Sodium 2 tab 08/23/23 18:00 08/24/23 08:56 Senna/Docusate Sodium Tablet PO 2 tab BID LM Admi
[2023-08-24 10:16] VITALS: O2SAT 97
[2023-08-24 10:45] VITALS: O2SAT 96
--- NOTE | 2023-08-24 11:26 | PC.NURSE ---
On 08/24/23, the student, Olive Fernandez, provided care and completed [facility] documentation on this patient. I have reviewed the student's documentation and agree with the findings.
--- NOTE | 2023-08-24 13:38 | PM.DS ---
DS: Admitting Diagnosis Discharge Date 08/24/23 Admitting Diagnosis Rotator cuff tear. DS: Discharge Diagnosis Discharge Diagnosis (1) Status post right rotator cuff repair: Code(s): Z98.890 - Other specified postprocedural states Status: Acute (2) Suspected sleep apnea: Code(s): R29.818 - Other symptoms and signs involving the nervous system Status: Acute (3) Postoperative hypoxia: Code(s): R09.02 - Hypoxemia; Z98.890 - Other specified postprocedural states Status: Acute Plan Postop day 1: Right rotator cuff repair. Patient had postoperative hypoxia after rotator cuff repair. Was on nasal canula O2 and destating. Oxygen stat has stabilized and he is no longer requiring oxygen. He is feeling much better. Pain manageable with pain medication. No numbness or tingling. He did not receive a block. We had a lengthy discussion regarding postoperative wound care, limitations, expectations, and exercises. Patient shows good understanding. He has had initial physical therapy and is tolerating it well. DVT prophylaxis: 81 mg baby aspirin b.i.d. for 14 days. Pain medication: Percocet. Patient has followup appointment with Dr. George in 2 weeks. DS: Summary Hospital Course Hospital Course: Outpatient elective rotator cuff repair yesterday. Patient had postoperative hypoxia. Suspected sleep apnea. Oxygen saturation is stable now. Status at Discharge Functional status at discharge: independent ambulation Overall status at discharge: patient is progressing back to baseline Time Spent with Patient Time attestation: Total time spent providing and/or coordinating discharge services: Exam Narrative: Overweight 58 y/o male. Resting comfortably in bed. Wearing sling. Dressing dry and intact with no drainage. Mild swelling. Moderate ecchymosis. No erythema. No hematoma. Range of motion limited due to pain. Calf nontender. Neurologic status intact. No varicosities. Distal pulses palpable. DS: Data Data Completed and Pending Labs on day of discharge: Labs from last 24 hours 08/24/23 08/24/23 08/24/23 06:40 06:39 06:37 WBC 15.6 H RBC 5.00 Hgb 14.8 Hct 45.9 MCV 91.8 MCH 29.6 MCHC 32.2 RDW 14.1 Plt Count 298 MPV 10.2 Sodium 135 L Potassium 3.9 Chloride 108 H Carbon Dioxide 25 Anion Gap 2 L BUN 14 Creatinine 1.00 Estim Creat Clear Calc 89 Estimated GFR > 60 Glucose 100 Calcium 7.8 L Magnesium 2.1 TSH (Reflex) 0.823 Discharge Plan Discharge Patient Disposition: Home, Self-Care Discharge Instructions: Remove the Scopolamine patch that was placed behind your ear in 72 hours or less. Wash your hands after touching. See green instruction sheets Patient Instructions: How to Stop Smoking (DC) Stand Alone Forms: General Discharge Instructions Follow-up/Referrals: Shiloh Willson PA [Physician Chemical Lab Technician] - Discharge Medications: New oxycodone-acetaminophen 5-325 mg tablet 1 - 2 tablet PO Q4-6H MDD 6 PRN (Reason: pain) Qty: 30 0RF Continued fluticasone propionate [Flonase Allergy Relief] 50 mcg/actuation spray,suspension 1 spray intranasal DAILY Rx Instructions: administer into each nostril David Probiotic 14 billion cell capsule 1 cell PO DAILY Zyrtec 10 mg capsule 10 mg PO DAILY PRN (Reason: Allergy Symptoms) escitalopram oxalate 10 mg tablet 10 mg PO DAILY Qty: 90 3RF indapamide 2.5 mg tablet 2.5 mg PO DAILY Qty: 90 3RF valacyclovir 500 mg tablet 500 mg PO DAILY Qty: 90 3RF (DME) syringe with needle [BD Luer-Cathleen Syringe] 3 mL 21 gauge x 1 1/2 syringe See Rx Instructions .ROUTE .COMPLEX Qty: 13 3RF Dose Instruction: USE DIRECTED UP TO WEEKLY Rx Instructions: USE DIRECTED UP TO WEEKLY levothyroxine 125 mcg tablet 125 mcg PO DAILY Qty: 90 0RF testosterone cypionate [Depo-Flavia
== END 2023-08-24 14:36 | disposition home or self-care (01) ==
LOC: ANHSURGERY 12:10 → ANH3MEDSUR 17:57
PROVIDERS: Nurse Practitioner Acute Care; Physician Assistant; PCP Family Medicine; Visit Provider Orthopaedic Surgery
PROC: (CPT 29805; principal; 2023-08-23 12:00)
DX: S46.011A Strain of muscle(s) and tendon(s) of the rotator cuff of right shoulder, initial encounter (principal); M75.21 Bicipital tendinitis, right shoulder; M75.41 Impingement syndrome of right shoulder; F41.9 Anxiety disorder, unspecified; E03.9 Hypothyroidism, unspecified; E66.9 Obesity, unspecified; Z68.41 Body mass index [BMI] 40.0-44.9, adult; R91.8 Other nonspecific abnormal finding of lung field; Z79.52 Long term (current) use of systemic steroids; Z79.891 Long term (current) use of opiate analgesic; Z98.890 Other specified postprocedural states; Z87.891 Personal history of nicotine dependence; Z80.3 Family history of malignant neoplasm of breast; Z80.1 Family history of malignant neoplasm of trachea, bronchus and lung; Z84.0 Family history of diseases of the skin and subcutaneous tissue; Z82.49 Family history of ischemic heart disease and other diseases of the circulatory system; X50.0XXA Overexertion from strenuous movement or load, initial encounter
CPT/HCPCS: 29827; 29826; 36415; 71045; 80048; 83735; 84443; 85027; 97110; 97161; 97165; 97535; A4565; A9270; C1713; J0171; J0690; J1100; J1885; J2250; J2405; J2704; J3010; J7030; J7120

== ENCOUNTER 2024-04-05 11:07 | Outpatient (CLI) | payer MEDICARE, SELFPAY ==
--- NOTE | ~2024-04-05 | XR_ITS ---
Lumbosacral Spine: AP and lateral views Clinical History: Pain COMPARISON: 07/09/2020 Findings: The normal lordotic curve is maintained. Stable grade 1 anterolisthesis of L4 over L5. Ther e is severe facet arthropathy throughout the lumbar spine. There is mild to moderate degenerative dis c change at L3-L4 and L4-L5. The sacroiliac joints are normally outlined. Impression: Stable grade 1 anterolisthesis of L4 over L5. Diffuse, severe facet arthropathy in the lumbar spine. Additional degenerative changes, as above. Reviewed, dictated and finalized at [facility] RELATIONS REPRESENTATIVE Impression: Stable grade 1 anterolisthesis of L4 over L5. Diffuse, severe facet arthropathy in the lumbar spine. Additional degenerative changes, as above.
== END 2024-04-05 11:08 | disposition home or self-care (01) ==
LOC: MICIMG 11:08
PROVIDERS: PCP Family Medicine; Visit Provider Nurse Practitioner Adult Health
DX: M43.16 Spondylolisthesis, lumbar region (principal); M47.816 Spondylosis without myelopathy or radiculopathy, lumbar region; M54.16 Radiculopathy, lumbar region
CPT/HCPCS: 72100

== ENCOUNTER 2024-05-04 14:39 | Outpatient (CLI) | payer MEDICARE, SELFPAY ==
--- NOTE | ~2024-05-04 | MR_ITS ---
MRI of the lumbar spine Clinical History: Spondylolisthesis Technique: Axial T2-weighted images, and sagittal T1-weighted, T2-weighted, and T2 fat-sat images wer e acquired. COMPARISON: 11/26/2020 Findings: No acute fracture or sublocation seen. Osseous alignment is unchanged from prior exam. Vert ebral bodies contain normal height and alignment. No suspicious bone marrow signal abnormality seen. At L1-L2, there is no significant disc bulge or herniation. There is moderate facet arthropathy. No c entral canal stenosis or neural foraminal narrowing. At L2-L3, there is no disc bulge or herniation. There is advanced facet arthropathy. No central canal stenosis or neural foraminal narrowing. At L3-L4, there is minimal disc bulge with severe facet arthropathy. No central canal stenosis or nery ral foraminal narrowing. At L4-L5, there is minimal disc bulge with severe facet arthropathy. No central canal stenosis or nery ral foraminal narrowing. At L5-S1, there is minimal disc bulge with severe facet arthropathy. No central canal stenosis. There is mild bilateral neural foraminal narrowing. Paravertebral soft tissues are unremarkable. Impression: Mild degenerative spondylosis overall, although there is extensive facet arthropathy. Reviewed, dictated and finalized at [facility]. TENANT GENERAL Impression: Mild degenerative spondylosis overall, although there is extensive facet arthro briana.
== END 2024-05-04 14:40 | disposition home or self-care (01) ==
PROVIDERS: PCP Family Medicine; Visit Provider Nurse Practitioner Adult Health
DX: M47.816 Spondylosis without myelopathy or radiculopathy, lumbar region (principal); M47.817 Spondylosis without myelopathy or radiculopathy, lumbosacral region
CPT/HCPCS: 72148